=== PATIENT | female | born 1960 | race Caucasian/White ===

== ENCOUNTER 2019-04-22 10:25 | Emergency (ER) | payer MEDICAID ==
[~2019-04-22] VITALS: Ht 162.6 cm; Wt 112.0 kg
[~2019-04-22 10:25] MED LIST: CEPH500C PO; DIGO125T93 PO; FURO-110 PO; HYDR-4011 PO; ISOS60TA PO; PROP20TA4 PO; RIVA20TA5 PO
[2019-04-22 10:30] VITALS: Ht 162.6 cm; Wt 112.0 kg
[2019-04-22] MEDS ORDERED: ONDANSETRON (ODT) 4 MG TAB ODT STA (10:55)
[2019-04-22] MEDS ORDERED: morphine 10 MG INJ IM ONE (11:00)
--- NOTE | 2019-04-22 11:45 | ERD ---
ER Documentation Chief Complaint Chief Complaint C/O COUGH, BACK PPAIN FOR 3 WEEKS. NEED CHEST XRAY. ON ANTIBIOTICS. HPI Is a 58-year-old female who is morbidly obese is here complaining of cough that has been intermittent for the past 3 weeks. It is dry. She has no chest pain palpitations or shortness of breath. She now has pain in her lower back. She denies any injury or trauma. No bowel or bladder incontinence. No numbness or tingling. She is currently taking antibiotics for her cough but was told by her primary care doctor to come in to get an x-ray. She does have a pacemaker. ROS All systems reviewed and are negative except as per history of present illness. Medications Home Meds Active Scripts Hydrocodone/Acetaminophen ([place] 5-325 Tablet) 1 Each Tablet, 1 TAB PO Q6H PRN for PAIN, #10 TAB Prov:NICOLE GARCIA PA-C 04/22/19 Cephalexin* (Cephalexin*) 500 Mg Capsule, 500 MG PO Q6 for 4 Days, #16 CAP Prov:FREDDY PAPPAS S. 04/01/18 Reported Medications Furosemide* (Lasix*) 20 Mg Tablet, 20 MG PO DAILY, TAB 03/31/18 Propranolol Hcl* (Propranolol Hcl*) 20 Mg Tablet, 20 MG PO TID, TAB 03/31/18 Digoxin* (Lanoxin*) 0.125 Mg Tablet, 0.0625 MG PO DAILY, TAB 03/31/18 Isosorbide Mononitrate* (Isosorbide Mononitrate*) 60 Mg Tab.er.24h, 60 MG PO DAILY, TAB 03/31/18 Rivaroxaban* (Xarelto*) 20 Mg Tablet, 20 MG PO QAM, TAB 03/31/18 Allergies Allergies: Coded Allergies: No Known Allergy (Unverified , 03/31/18) PMhx/Soc History of Surgery: No Anesthesia Reaction: No Hx Neurological Disorder: No Hx Respiratory Disorders: Yes (sleep apnea) Hx Cardiac Disorders: Yes (a fib, htn, DVT) Hx Psychiatric Problems: No Hx Miscellaneous Medical Probl: No Hx Alcohol Use: No Hx Substance Use: No Hx Tobacco Use: No Smoking Status: Never smoker FmHx Family History: No diabetes Physical Exam Vitals Vital Signs Date Temp Pulse Resp B/P (MAP) Pulse Ox O2 O2 Flow FiO2 Time Delivery Rate 8/8/19 97.7 60 20 121/71 93 10:30 (88) Physical Exam INITIAL VITAL SIGNS: Reviewed by me GENERAL: Awake, alert and oriented x 4, well appearing, nontoxic, speaking in full sentences. No acute distress, morbidly obese HEAD: Atraumatic NECK: Supple. No masses. Full range of motion. No meningismus. No midline tenderness. RESPIRATORY: Clear to auscultation bilaterally. Symmetric chest wall rise. No wheezing or rales. No accessory muscle use. CV: Regular rate and rhythm. No murmurs, rubs, or gallops. ABDOMEN: Soft, non-distended. Nontender. Negative [place]. Negative [place] point tenderness. No CVA tenderness bilaterally. No guarding. No rebound. Back Exam: Compartments: Soft Motor: Normal flexion and extension of bilateral hip/knee/ankle/foot Sensation: Intact to light touch throughout Bones: No midline TTP Results 24 hrs Current Medications Medications Dose Sig/Omar Start Time Status Last (Trade) Ordered Route PRN Stop Time Admin Dose Reason Admin Morphine 6 mg ONCE ONCE 04/22/19 DC 04/22/19 Sulfate IM 11:00 04/22/19 11:07 (morphine) 11:01 Ondansetron 8 mg ONCE STAT 04/22/19 DC 04/22/19 HCl (Zofran ODT 10:55 04/22/19 11:05 Odt) 10:57 Procedures/MDM Patient is here for cough and back pain. Per her doctor's request I did order a chest x-ray which was negative. X-ray of her lumbar spine shows degenerative changes. She was given morphine IM and Zofran with improvement. Discharged with a small amount of [place]. She was given copy of her x-ray reports that she can follow-up with primary care. No chest pain palpitations shortness of breath. She states her cough is mild and the real reason she came in today was to examine her back. But she did also request x-ray of her chest as requested by primary care. At discharge patient's O2 saturation was 90%. She states that this is normal for her and she used to use home oxygen at home and she has a pulse ox monitor at home. She has been off oxygen for about 3 months. I rev iewed this finding with Dr. Barreto and we agreed she is suitable for outpatient management with close primary care follow-up to determine if she needs to continue home oxygen at this timePatient counseled regarding my diagnostic impression and care plan. Prior to discharge all questions answered. Pt agrees with treatment plan and understands strict return precautions. Pt is instructed to follow up with primary care provider within 24-48 hours. Precautionary instructions provided including instructions to return to the ER if not improving or for any worsening or changing symptoms or concerns. Departure Diagnosis: Primary Impression: Back pain Additional Impression: Cough Condition: Stable Patient Instructions: Back Pain (Acute Or Chronic), Cough, Chronic, Uncertain Cause, (Adult) Additional Instructions: Call your primary care doctor TOMORROW for an appointment during the next 1-2 days.See the doctor sooner or return here if your condition worsens before your appointment time. NICOLE GARCIA PA-C Apr 22, 2019 11:45
[2019-04-22 12:13] VITALS: BP 110/74; PULSE 71; RESP 20
== END 2019-04-22 12:14 | disposition home or self-care (01) ==
LOC: FTE 10:25
DX: M54.9 Dorsalgia, unspecified (principal); I10 Essential (primary) hypertension; E66.01 Morbid (severe) obesity due to excess calories; Z68.41 Body mass index [BMI] 40.0-44.9, adult
CPT/HCPCS: 71045; 72100; 96372; J2270; Z7502; Z7610